=== PATIENT | male | born 1945 | race Caucasian/White ===

== ENCOUNTER 2018-01-06 23:00 | Emergency (ER) | payer MEDICARE, OTHER ==
[2018-01-07] MEDS ORDERED: Diphtheria,Pertussis(Acell),Tetanus Vaccine 0.5 ML SDV IM ONE (00:58)
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
== END 2018-01-07 01:05 | disposition home or self-care (01) ==
LOC: FB.ED 23:00
DX: S06.0X0A Concussion without loss of consciousness, initial encounter (principal); S00.81XA Abrasion of other part of head, initial encounter; F10.129 Alcohol abuse with intoxication, unspecified; Y90.0 Blood alcohol level of less than 20 mg/100 ml; W19.XXXA Unspecified fall, initial encounter; Y93.02 Activity, running
CPT/HCPCS: 36415; 70450; 72125; 80053; 84484; 85025; 93005; 99284; G0480